=== PATIENT | male | born 1975 | race Caucasian/White ===

== ENCOUNTER 2021-12-10 13:41 | Inpatient (IN) | payer OTHER ==
[2021-12-10 15:14] VITALS: BMI 18.0
[2021-12-10] MEDS ORDERED: ACETAMINOPHEN 325 MG TABLET (FP) PO PRN ×2 (15:53)
[2021-12-10] MEDS ORDERED: MAGNESIUM HYDROX 2400MG/30ML ORAL SUSPENSION 30 ML CUP PO PRN (15:53)
[2021-12-10] MEDS ORDERED: IBUPROFEN 400 MG TABLET (FP) PO PRN (15:53)
[2021-12-10] MEDS ORDERED: methaDONE HCL 10 MG TABLET (FOR DETOX USE ONLY) PO ONE ×2 (15:53→20:15)
[2021-12-10] MEDS ORDERED: METHOCARBAMOL 500 MG TABLET PO PRN (15:53)
[2021-12-10] MEDS ORDERED: MAGNESIUM CITRATE 300 ML BOTTLE PO PRN (15:53)
[2021-12-10] MEDS ORDERED: MENTHOL/PHENOL 1 EACH UD MM PRN (15:53)
[2021-12-10] MEDS ORDERED: BISMUTH SUBSALICYLATE 524 MG/30 ML PO PRN (15:53)
[2021-12-10] MEDS ORDERED: cloNIDine HCL 0.1 MG TABLET PO PRN (15:53)
[2021-12-10] MEDS ORDERED: NICOTINE 10 MG CARTRIDGE (INHALER) IH PRN (15:53)
[2021-12-10] MEDS ORDERED: LOPERAMIDE HCL 2 MG CAPSULE PO PRN (15:53)
[2021-12-10] MEDS ORDERED: ONDANSETRON *ODT* 4 MG TABLET SL PRN (15:53)
[2021-12-10] MEDS ORDERED: MAG HYDROX/AL HYDROX/SIMETH 30 ML UNIT-DOSE CUP PO PRN (15:53)
[2021-12-10] MEDS: hydrOXYzine PAMOATE 25 MG CAPSULE (FP) PO SCH ×2 (20:20→22:35)
[2021-12-10] MEDS: THIAMINE HCL 100 MG TABLET (FP) PO SCH (22:35)
[2021-12-10] MEDS: diazePAM 5 MG TABLET PO SCH (22:35)
[2021-12-10] MEDS: MELATONIN 5 MG TABLETS PO SCH (22:35)
[2021-12-11] MEDS: hydrOXYzine PAMOATE 25 MG CAPSULE (FP) PO SCH ×5 (05:41→22:35)
[2021-12-11] MEDS: diazePAM 5 MG TABLET PO SCH (05:41)
[2021-12-11] MEDS ORDERED: methaDONE HCL 10 MG TABLET (FOR DETOX USE ONLY) ONE (09:32)
[2021-12-11] MEDS: PRENATAL VITAMINS W/ FOLIC ACID TABLET (FP) PO SCH (10:30)
[2021-12-11 11:26] LABS: HEMATOCRIT 39.3 % (35.4-49); HEMOGLOBIN 12.5 GM/dL (11.7-16.9); MCH 28.1 pg (25.7-33.7); MCHC 31.9 g/dl (32.0-35.9); MEAN PLT VOLUME 8.7 fl (7.5-11.1); PLATELET COUNT 243 10^3/uL (134-434); RBC 4.47 M/mm3 (4.00-5.60); RDW 16.6 % (11.9-15.9)
[2021-12-11 11:40] LABS: ALBUMIN 3.5 g/dl (3.4-5.0); CALCIUM 9.5 mg/dL (8.5-10.1)
[2021-12-11 11:41] LABS: BLOOD UREA NITROGEN 23.2 mg/dL (7-18)
[2021-12-11 11:44] LABS: CREATININE 0.7 mg/dL (0.55-1.3)
[2021-12-11 11:45] LABS: BILIRUBIN,TOTAL 0.6 mg/dL (0.2-1); TOT PROT 6.4 g/dl (6.4-8.2)
[2021-12-11] MEDS: BICTEGRAV/EMTRICIT/TENOFOV (BIKTARVY) 50-200-25 MG TABLET PO SCH (15:49)
[2021-12-11] MEDS: MELATONIN 5 MG TABLETS PO SCH (22:35)
[2021-12-11] MEDS: THIAMINE HCL 100 MG TABLET (FP) PO SCH (22:35)
[2021-12-11] MEDS: diazePAM 5 MG TABLET PO PRN (22:37)
[2021-12-12] MEDS ORDERED: diazePAM 5 MG TABLET PO SCH (06:00)
[2021-12-12] MEDS: diazePAM 5 MG TABLET PO PRN ×2 (06:54→20:50)
[2021-12-12] MEDS: hydrOXYzine PAMOATE 25 MG CAPSULE (FP) PO SCH ×5 (06:55→22:32)
[2021-12-12] MEDS: BICTEGRAV/EMTRICIT/TENOFOV (BIKTARVY) 50-200-25 MG TABLET PO SCH (07:52)
[2021-12-12] MEDS ORDERED: methaDONE HCL 10 MG TABLET (FOR DETOX USE ONLY) PO ONE (10:00)
[2021-12-12] MEDS: PRENATAL VITAMINS W/ FOLIC ACID TABLET (FP) PO SCH (10:17)
[2021-12-12] MEDS: diazePAM 5 MG TABLET PO SCH ×3 (10:19→22:32)
[2021-12-12 14:07] LABS: SARS-CoV-2 NAA Not Detected (Not Detected)
[2021-12-12] MEDS: THIAMINE HCL 100 MG TABLET (FP) PO SCH (22:32)
[2021-12-12] MEDS: MELATONIN 5 MG TABLETS PO SCH (22:32)
[2021-12-13] MEDS: hydrOXYzine PAMOATE 25 MG CAPSULE (FP) PO SCH ×5 (05:53→22:20)
[2021-12-13] MEDS: diazePAM 5 MG TABLET PO SCH ×3 (05:54→22:20)
[2021-12-13] MEDS ORDERED: diazePAM 5 MG TABLET PO SCH ×2 (06:00)
[2021-12-13] MEDS: BICTEGRAV/EMTRICIT/TENOFOV (BIKTARVY) 50-200-25 MG TABLET PO SCH (07:54)
[2021-12-13] MEDS ORDERED: methaDONE HCL 10 MG TABLET (FOR DETOX USE ONLY) ONE (11:24)
[2021-12-13] MEDS: PRENATAL VITAMINS W/ FOLIC ACID TABLET (FP) PO SCH (11:27)
[2021-12-13] MEDS: diazePAM 5 MG TABLET PO PRN (18:38)
[2021-12-13] MEDS: THIAMINE HCL 100 MG TABLET (FP) PO SCH (22:20)
[2021-12-13] MEDS: MELATONIN 5 MG TABLETS PO SCH (22:20)
[2021-12-14] MEDS ORDERED: diazePAM 5 MG TABLET PO ONE (06:00)
[2021-12-14] MEDS ORDERED: diazePAM 5 MG TABLET PO SCH (06:00)
[2021-12-14] MEDS: BICTEGRAV/EMTRICIT/TENOFOV (BIKTARVY) 50-200-25 MG TABLET PO SCH (07:06)
[2021-12-14] MEDS: hydrOXYzine PAMOATE 25 MG CAPSULE (FP) PO SCH ×3 (07:07→14:26)
[2021-12-14] MEDS: diazePAM 5 MG TABLET PO SCH ×2 (07:07→17:41)
[2021-12-14] MEDS ORDERED: methaDONE HCL 10 MG TABLET (FOR DETOX USE ONLY) PO ONE (10:00)
[2021-12-14] MEDS: PRENATAL VITAMINS W/ FOLIC ACID TABLET (FP) PO SCH (10:53)
[2021-12-14 17:42] VITALS: BP 106/65; PULSE 84; TEMP 98
[2021-12-15] MEDS ORDERED: diazePAM 5 MG TABLET PO ONE (06:00)
== END 2021-12-14 18:25 | disposition home or self-care (01) | DRG 897 ==
LOC: YASAS 13:41 → Y3N 19:31
PROVIDERS: ADMIT Allergy & Immunology; ATTEND Allergy & Immunology
PROC: HZ2ZZZZ Detoxification Services for Substance Abuse Treatment (ICD-10-PCS; principal; 2021-12-10)
DX: F11.23 Opioid dependence with withdrawal (principal); F14.20 Cocaine dependence, uncomplicated; F17.210 Nicotine dependence, cigarettes, uncomplicated; F19.24 Other psychoactive substance dependence with psychoactive substance-induced mood disorder; F41.9 Anxiety disorder, unspecified; Z21 Asymptomatic human immunodeficiency virus [HIV] infection status; J44.9 Chronic obstructive pulmonary disease, unspecified; B18.2 Chronic viral hepatitis C; Z56.0 Unemployment, unspecified; Z59.00 Homelessness unspecified
CPT/HCPCS: 36415; 80053; 85027; 86780; 87811; C9803; U0003; U0005

== ENCOUNTER 2022-02-15 13:45 | Inpatient (IN) | payer OTHER ==
[2022-02-15] MEDS ORDERED: BISMUTH SUBSALICYLATE 524 MG/30 ML PO PRN (15:24)
[2022-02-15] MEDS ORDERED: METHOCARBAMOL 500 MG TABLET PO PRN (15:24)
[2022-02-15] MEDS ORDERED: ONDANSETRON *ODT* 4 MG TABLET SL PRN (15:24)
[2022-02-15] MEDS ORDERED: ACETAMINOPHEN 325 MG TABLET (FP) PO PRN ×2 (15:24)
[2022-02-15] MEDS ORDERED: MAGNESIUM HYDROX 2400MG/30ML ORAL SUSPENSION 30 ML CUP PO PRN (15:24)
[2022-02-15] MEDS ORDERED: DICYCLOMINE HCL 10 MG CAPSULE PO PRN (15:24)
[2022-02-15] MEDS ORDERED: NICOTINE 10 MG CARTRIDGE (INHALER) IH PRN (15:24)
[2022-02-15] MEDS ORDERED: MAG HYDROX/AL HYDROX/SIMETH 30 ML UNIT-DOSE CUP PO PRN (15:24)
[2022-02-15] MEDS ORDERED: IBUPROFEN 400 MG TABLET (FP) PO PRN (15:24)
[2022-02-15] MEDS ORDERED: BENZOCAINE/MENTHOL (CHLORASEPTIC ) LOZENGE MM PRN (15:24)
[2022-02-15] MEDS ORDERED: MAGNESIUM CITRATE 300 ML BOTTLE PO PRN (15:24)
[2022-02-15] MEDS ORDERED: LOPERAMIDE HCL 2 MG CAPSULE PO PRN (15:24)
[2022-02-15 17:21] VITALS: BMI 19.8
[2022-02-15] MEDS ORDERED: hydrOXYzine PAMOATE 25 MG CAPSULE (FP) PO ONE (18:35)
[2022-02-15] MEDS ORDERED: diazePAM 5 MG TABLET ONE (18:35)
[2022-02-15] MEDS: hydrOXYzine PAMOATE 25 MG CAPSULE (FP) PO SCH (18:39)
[2022-02-15] MEDS: diazePAM 5 MG TABLET PO SCH (18:39)
[2022-02-16] MEDS: NICOTINE 21 MG/24 HOURS TOPICAL PATCH TD SCH ×2 (06:10→15:26)
[2022-02-16] MEDS: MELATONIN 5 MG TABLETS PO SCH ×2 (06:10→22:46)
[2022-02-16] MEDS: diazePAM 5 MG TABLET PO SCH ×5 (06:11→22:47)
[2022-02-16] MEDS: PRENATAL VITAMINS W/ FOLIC ACID TABLET (FP) PO SCH ×2 (06:11→15:26)
[2022-02-16] MEDS: hydrOXYzine PAMOATE 25 MG CAPSULE (FP) PO SCH ×6 (06:12→22:46)
[2022-02-16] MEDS: THIAMINE HCL 100 MG TABLET (FP) PO SCH ×2 (06:13→22:46)
[2022-02-16] MEDS ORDERED: diazePAM 5 MG TABLET ONE (06:16)
[2022-02-16 10:00] LABS: ALBUMIN 3.7 g/dl (3.4-5.0); BLOOD UREA NITROGEN 15.6 mg/dL (7-18); HEMATOCRIT 39.3 % (35.4-49); HEMOGLOBIN 12.8 GM/dL (11.7-16.9); MCH 28.8 pg (25.7-33.7); MCHC 32.6 g/dl (32.0-35.9); MEAN CELL VOLUME 88.4 fl (80-96); MEAN PLT VOLUME 8.3 fl (7.5-11.1); PLATELET COUNT 259 10^3/uL (134-434); RBC 4.44 M/mm3 (4.00-5.60); RDW 16.1 % (11.9-15.9); WHITE BLOOD COUNT 5.2 K/mm3 (4.0-10.0)
[2022-02-16 10:03] LABS: CREATININE 0.8 mg/dL (0.55-1.3)
[2022-02-16 10:05] LABS: BILIRUBIN,TOTAL 0.3 mg/dL (0.2-1); TOT PROT 6.2 g/dl (6.4-8.2)
[2022-02-16] MEDS ORDERED: methaDONE HCL 40 MG DISPERSABLE TABLET PO SCH (13:30)
[2022-02-16] MEDS ORDERED: methaDONE HCL 10 MG TABLET ONE (15:23)
[2022-02-16] MEDS ORDERED: methaDONE HCL 40 MG DISPERSABLE TABLET ONE (15:23)
[2022-02-16] MEDS: diazePAM 5 MG TABLET PO PRN (15:25)
[2022-02-16] MEDS: SULFAMETHOXAZOLE/TRIMETHOPRIM 800MG/160MG D.S. TABLET PO SCH (15:26)
[2022-02-16] MEDS: methaDONE 40 MG, methaDONE 30 MG PO SCH (15:26)
[2022-02-17] MEDS: hydrOXYzine PAMOATE 25 MG CAPSULE (FP) PO SCH ×5 (07:04→22:26)
[2022-02-17] MEDS: diazePAM 5 MG TABLET PO SCH ×3 (07:04→22:26)
[2022-02-17] MEDS: BICTEGRAV/EMTRICIT/TENOFOV (BIKTARVY) 50-200-25 MG TABLET PO SCH (08:36)
[2022-02-17] MEDS ORDERED: methaDONE HCL 10 MG TABLET ONE (09:27)
[2022-02-17] MEDS ORDERED: methaDONE HCL 40 MG DISPERSABLE TABLET ONE (09:27)
[2022-02-17] MEDS: PRENATAL VITAMINS W/ FOLIC ACID TABLET (FP) PO SCH (10:28)
[2022-02-17] MEDS: SULFAMETHOXAZOLE/TRIMETHOPRIM 800MG/160MG D.S. TABLET PO SCH (10:29)
[2022-02-17] MEDS: methaDONE 40 MG, methaDONE 30 MG PO SCH (10:29)
[2022-02-17] MEDS: NICOTINE 21 MG/24 HOURS TOPICAL PATCH TD SCH (11:09)
[2022-02-17] MEDS: diazePAM 5 MG TABLET PO PRN (18:32)
[2022-02-17] MEDS: MELATONIN 5 MG TABLETS PO SCH (22:26)
[2022-02-17] MEDS: THIAMINE HCL 100 MG TABLET (FP) PO SCH (22:26)
[2022-02-18] MEDS: hydrOXYzine PAMOATE 25 MG CAPSULE (FP) PO SCH ×5 (05:11→22:43)
[2022-02-18] MEDS: diazePAM 5 MG TABLET PO SCH ×2 (05:11→18:16)
[2022-02-18] MEDS: BICTEGRAV/EMTRICIT/TENOFOV (BIKTARVY) 50-200-25 MG TABLET PO SCH (07:30)
[2022-02-18] MEDS ORDERED: methaDONE HCL 40 MG DISPERSABLE TABLET ONE (08:38)
[2022-02-18] MEDS ORDERED: methaDONE HCL 10 MG TABLET ONE (08:38)
[2022-02-18] MEDS: methaDONE 40 MG, methaDONE 30 MG PO SCH (10:20)
[2022-02-18] MEDS: SULFAMETHOXAZOLE/TRIMETHOPRIM 800MG/160MG D.S. TABLET PO SCH (10:21)
[2022-02-18] MEDS: PRENATAL VITAMINS W/ FOLIC ACID TABLET (FP) PO SCH (10:21)
[2022-02-18] MEDS: NICOTINE 21 MG/24 HOURS TOPICAL PATCH TD SCH (10:23)
[2022-02-18] MEDS: THIAMINE HCL 100 MG TABLET (FP) PO SCH (22:43)
[2022-02-18] MEDS: MELATONIN 5 MG TABLETS PO SCH (22:43)
[2022-02-19] MEDS: hydrOXYzine PAMOATE 25 MG CAPSULE (FP) PO SCH ×5 (05:43→23:05)
[2022-02-19] MEDS ORDERED: diazePAM 5 MG TABLET PO ONE (06:00)
[2022-02-19] MEDS ORDERED: methaDONE HCL 40 MG DISPERSABLE TABLET ONE (09:37)
[2022-02-19] MEDS ORDERED: methaDONE HCL 10 MG TABLET ONE (09:37)
[2022-02-19] MEDS: methaDONE 40 MG, methaDONE 30 MG PO SCH (10:09)
[2022-02-19] MEDS: PRENATAL VITAMINS W/ FOLIC ACID TABLET (FP) PO SCH (10:09)
[2022-02-19] MEDS: BICTEGRAV/EMTRICIT/TENOFOV (BIKTARVY) 50-200-25 MG TABLET PO SCH (10:09)
[2022-02-19] MEDS: NICOTINE 21 MG/24 HOURS TOPICAL PATCH TD SCH (10:10)
[2022-02-19] MEDS: SULFAMETHOXAZOLE/TRIMETHOPRIM 800MG/160MG D.S. TABLET PO SCH (10:11)
[2022-02-19 21:30] VITALS: BP 122/71; PULSE 61; TEMP 97.5
[2022-02-19] MEDS: MELATONIN 5 MG TABLETS PO SCH (23:05)
[2022-02-19] MEDS: THIAMINE HCL 100 MG TABLET (FP) PO SCH (23:05)
== END 2022-02-19 23:55 | disposition home or self-care (01) | DRG 897 ==
LOC: YASAS 13:45 → Y3N 02-16 13:12 → UNDODISIN 02-19 23:52 → Y3N 02-20 00:06 → Y3W 02-20 00:06
PROVIDERS: ADMIT Allergy & Immunology; ATTEND Surgery
PROC: HZ2ZZZZ Detoxification Services for Substance Abuse Treatment (ICD-10-PCS; principal; 2022-02-16)
DX: F10.230 Alcohol dependence with withdrawal, uncomplicated (principal); F11.20 Opioid dependence, uncomplicated; F13.20 Sedative, hypnotic or anxiolytic dependence, uncomplicated; F14.20 Cocaine dependence, uncomplicated; F15.20 Other stimulant dependence, uncomplicated; F17.210 Nicotine dependence, cigarettes, uncomplicated; F19.24 Other psychoactive substance dependence with psychoactive substance-induced mood disorder; F41.9 Anxiety disorder, unspecified; F32.A Depression, unspecified; Z21 Asymptomatic human immunodeficiency virus [HIV] infection status; Z98.890 Other specified postprocedural states; Z28.310 Unvaccinated for COVID-19; Z59.00 Homelessness unspecified
CPT/HCPCS: 36415; 80053; 85027; 86780; C9803-CS; U0003; U0005

== ENCOUNTER 2022-02-20 01:12 | Inpatient (IN) | payer OTHER ==
[2022-02-20] MEDS ORDERED: MAGNESIUM CITRATE 300 ML BOTTLE PO PRN (01:14)
[2022-02-20] MEDS ORDERED: IBUPROFEN 400 MG TABLET (FP) PO PRN (01:14)
[2022-02-20] MEDS ORDERED: MAGNESIUM HYDROX 2400MG/30ML ORAL SUSPENSION 30 ML CUP PO PRN (01:14)
[2022-02-20] MEDS ORDERED: guaiFENesin 200 MG/10 ML 10 ML UNIT-DOSE CUPS PO PRN (01:14)
[2022-02-20] MEDS ORDERED: hydrOXYzine PAMOATE 25 MG CAPSULE (FP) PO PRN (01:14)
[2022-02-20] MEDS ORDERED: MAG HYDROX/AL HYDROX/SIMETH 30 ML UNIT-DOSE CUP PO PRN (01:14)
[2022-02-20] MEDS ORDERED: BENZOCAINE/MENTHOL (CHLORASEPTIC ) LOZENGE MM PRN (01:14)
[2022-02-20] MEDS ORDERED: ACETAMINOPHEN 325 MG TABLET (FP) PO PRN (01:14)
[2022-02-20] MEDS ORDERED: P-EPHED 60MG/TRIPROLIDI 2.5MG TABLET PO PRN (01:14)
[2022-02-20] MEDS ORDERED: LOPERAMIDE HCL 2 MG CAPSULE PO PRN (01:14)
[2022-02-20] MEDS ORDERED: NICOTINE POLACRILEX 2 MG GUM BUC PRN (01:14)
[2022-02-20] MEDS ORDERED: methaDONE 40 MG, methaDONE 30 MG PO ONE (09:30)
[2022-02-20] MEDS ORDERED: methaDONE HCL 40 MG DISPERSABLE TABLET ONE (09:34)
[2022-02-20] MEDS ORDERED: methaDONE HCL 10 MG TABLET ONE (09:34)
[2022-02-20] MEDS: BICTEGRAV/EMTRICIT/TENOFOV (BIKTARVY) 50-200-25 MG TABLET PO SCH (09:35)
[2022-02-20] MEDS: SULFAMETHOXAZOLE/TRIMETHOPRIM 800MG/160MG D.S. TABLET PO SCH (09:35)
[2022-02-20] MEDS: PRENATAL VITAMINS W/ FOLIC ACID TABLET (FP) PO SCH (09:42)
[2022-02-20] MEDS: NICOTINE 21 MG/24 HOURS TOPICAL PATCH TD SCH (09:42)
[2022-02-20] MEDS ORDERED: methaDONE HCL 40 MG DISPERSABLE TABLET PO SCH (10:00)
[2022-02-20] MEDS ORDERED: NICOTINE 14 MG/24 HOURS TOPICAL PATCH TD SCH (10:00)
[2022-02-20] MEDS: THIAMINE HCL 100 MG TABLET (FP) PO SCH (23:20)
[2022-02-20] MEDS: MELATONIN 5 MG TABLETS PO SCH (23:20)
[2022-02-21] MEDS ORDERED: methaDONE HCL 40 MG DISPERSABLE TABLET ONE (05:33)
[2022-02-21] MEDS ORDERED: methaDONE HCL 10 MG TABLET ONE (05:33)
[2022-02-21] MEDS: methaDONE 40 MG, methaDONE 30 MG PO SCH (06:10)
[2022-02-21] MEDS: SULFAMETHOXAZOLE/TRIMETHOPRIM 800MG/160MG D.S. TABLET PO SCH (09:56)
[2022-02-21] MEDS: BICTEGRAV/EMTRICIT/TENOFOV (BIKTARVY) 50-200-25 MG TABLET PO SCH (09:56)
[2022-02-21] MEDS: NICOTINE 21 MG/24 HOURS TOPICAL PATCH TD SCH (09:56)
[2022-02-21] MEDS: PRENATAL VITAMINS W/ FOLIC ACID TABLET (FP) PO SCH (09:56)
[2022-02-21] MEDS: METHOCARBAMOL 500 MG TABLET PO SCH ×4 (09:56→23:35)
[2022-02-21] MEDS: MELATONIN 5 MG TABLETS PO SCH (23:34)
[2022-02-21] MEDS: THIAMINE HCL 100 MG TABLET (FP) PO SCH (23:35)
[2022-02-22] MEDS ORDERED: methaDONE HCL 10 MG TABLET ONE (03:48)
[2022-02-22] MEDS ORDERED: methaDONE HCL 40 MG DISPERSABLE TABLET ONE (03:48)
[2022-02-22] MEDS: methaDONE 40 MG, methaDONE 30 MG PO SCH (06:03)
[2022-02-22] MEDS: PRENATAL VITAMINS W/ FOLIC ACID TABLET (FP) PO SCH (10:11)
[2022-02-22] MEDS: BICTEGRAV/EMTRICIT/TENOFOV (BIKTARVY) 50-200-25 MG TABLET PO SCH (10:11)
[2022-02-22] MEDS: SULFAMETHOXAZOLE/TRIMETHOPRIM 800MG/160MG D.S. TABLET PO SCH (10:11)
[2022-02-22] MEDS: METHOCARBAMOL 500 MG TABLET PO SCH ×4 (10:12→22:03)
[2022-02-22] MEDS: NICOTINE 21 MG/24 HOURS TOPICAL PATCH TD SCH (10:12)
[2022-02-22 16:10] LABS: SARS-CoV-2 NAA Not Detected (Not Detected)
[2022-02-22] MEDS: THIAMINE HCL 100 MG TABLET (FP) PO SCH (22:03)
[2022-02-22] MEDS: MELATONIN 5 MG TABLETS PO SCH (22:03)
[2022-02-23] MEDS ORDERED: methaDONE HCL 40 MG DISPERSABLE TABLET ONE (02:52)
[2022-02-23] MEDS ORDERED: methaDONE HCL 10 MG TABLET ONE (02:52)
[2022-02-23] MEDS: methaDONE 40 MG, methaDONE 30 MG PO SCH (06:23)
[2022-02-23] MEDS: SULFAMETHOXAZOLE/TRIMETHOPRIM 800MG/160MG D.S. TABLET PO SCH (10:12)
[2022-02-23] MEDS: BICTEGRAV/EMTRICIT/TENOFOV (BIKTARVY) 50-200-25 MG TABLET PO SCH (10:12)
[2022-02-23] MEDS: NICOTINE 21 MG/24 HOURS TOPICAL PATCH TD SCH (10:12)
[2022-02-23] MEDS: METHOCARBAMOL 500 MG TABLET PO SCH ×4 (10:12→22:38)
[2022-02-23] MEDS: PRENATAL VITAMINS W/ FOLIC ACID TABLET (FP) PO SCH (10:12)
[2022-02-23] MEDS: THIAMINE HCL 100 MG TABLET (FP) PO SCH (22:38)
[2022-02-23] MEDS: MELATONIN 5 MG TABLETS PO SCH (22:38)
[2022-02-24] MEDS ORDERED: methaDONE HCL 10 MG TABLET ONE (03:00)
[2022-02-24] MEDS ORDERED: methaDONE HCL 40 MG DISPERSABLE TABLET ONE (03:00)
[2022-02-24] MEDS: methaDONE 40 MG, methaDONE 30 MG PO SCH (06:04)
[2022-02-24] MEDS: PRENATAL VITAMINS W/ FOLIC ACID TABLET (FP) PO SCH (10:51)
[2022-02-24] MEDS: SULFAMETHOXAZOLE/TRIMETHOPRIM 800MG/160MG D.S. TABLET PO SCH (10:51)
[2022-02-24] MEDS: METHOCARBAMOL 500 MG TABLET PO SCH ×4 (10:51→22:41)
[2022-02-24] MEDS: BICTEGRAV/EMTRICIT/TENOFOV (BIKTARVY) 50-200-25 MG TABLET PO SCH (10:51)
[2022-02-24] MEDS: NICOTINE 21 MG/24 HOURS TOPICAL PATCH TD SCH (10:52)
[2022-02-24] MEDS: MELATONIN 5 MG TABLETS PO SCH (22:41)
[2022-02-24] MEDS: THIAMINE HCL 100 MG TABLET (FP) PO SCH (22:41)
[2022-02-25] MEDS ORDERED: methaDONE HCL 10 MG TABLET ONE (05:58)
[2022-02-25] MEDS ORDERED: methaDONE HCL 40 MG DISPERSABLE TABLET ONE (05:59)
[2022-02-25] MEDS: methaDONE 40 MG, methaDONE 30 MG PO SCH (05:59)
[2022-02-25] MEDS: SULFAMETHOXAZOLE/TRIMETHOPRIM 800MG/160MG D.S. TABLET PO SCH (09:55)
[2022-02-25] MEDS: METHOCARBAMOL 500 MG TABLET PO SCH ×4 (09:55→22:01)
[2022-02-25] MEDS: NICOTINE 21 MG/24 HOURS TOPICAL PATCH TD SCH (09:56)
[2022-02-25] MEDS: BICTEGRAV/EMTRICIT/TENOFOV (BIKTARVY) 50-200-25 MG TABLET PO SCH (09:56)
[2022-02-25] MEDS: PRENATAL VITAMINS W/ FOLIC ACID TABLET (FP) PO SCH (09:56)
[2022-02-25] MEDS: MELATONIN 5 MG TABLETS PO SCH (22:01)
[2022-02-25] MEDS: THIAMINE HCL 100 MG TABLET (FP) PO SCH (22:01)
[2022-02-26] MEDS ORDERED: methaDONE HCL 40 MG DISPERSABLE TABLET ONE (05:48)
[2022-02-26] MEDS ORDERED: methaDONE HCL 10 MG TABLET ONE (05:48)
[2022-02-26] MEDS: methaDONE 40 MG, methaDONE 30 MG PO SCH (06:19)
[2022-02-26 07:12] VITALS: TEMP 97
[2022-02-26] MEDS: PRENATAL VITAMINS W/ FOLIC ACID TABLET (FP) PO SCH (09:54)
[2022-02-26] MEDS: NICOTINE 21 MG/24 HOURS TOPICAL PATCH TD SCH (09:54)
[2022-02-26] MEDS: BICTEGRAV/EMTRICIT/TENOFOV (BIKTARVY) 50-200-25 MG TABLET PO SCH (09:54)
[2022-02-26] MEDS: SULFAMETHOXAZOLE/TRIMETHOPRIM 800MG/160MG D.S. TABLET PO SCH (09:54)
[2022-02-26] MEDS: METHOCARBAMOL 500 MG TABLET PO SCH (09:54)
[2022-02-26 11:38] VITALS: BP 143/84; PULSE 96
== END 2022-02-26 11:50 | disposition short-term general hospital (02) | DRG 895 ==
LOC: Y3W 01:12
PROVIDERS: ADMIT Allergy & Immunology; ATTEND Psychiatry & Neurology Pain Medicine
PROC: HZ42ZZZ Group Counseling for Substance Abuse Treatment, Cognitive-Behavioral (ICD-10-PCS; principal; 2022-02-20)
DX: F11.20 Opioid dependence, uncomplicated (principal); F14.20 Cocaine dependence, uncomplicated; F10.20 Alcohol dependence, uncomplicated; F17.210 Nicotine dependence, cigarettes, uncomplicated; Z21 Asymptomatic human immunodeficiency virus [HIV] infection status; Z86.59 Personal history of other mental and behavioral disorders; Z98.890 Other specified postprocedural states
CPT/HCPCS: C9803-CS; U0003; U0005

== ENCOUNTER 2023-02-16 16:14 | Inpatient (IN) | payer MEDICARE, OTHER ==
[2023-02-16 16:46] VITALS: BMI 18.2
[2023-02-16] MEDS ORDERED: NICOTINE POLACRILEX 2 MG GUM BUC PRN (18:40)
[2023-02-16] MEDS ORDERED: MAGNESIUM HYDROX 2400MG/30ML ORAL SUSPENSION 30 ML CUP PO PRN (18:40)
[2023-02-16] MEDS ORDERED: NALOXONE HCL 0.4 MG/ML VIAL IM PRN (18:40)
[2023-02-16] MEDS ORDERED: BENZOCAINE/MENTHOL (CHLORASEPTIC ) LOZENGE MM PRN (18:40)
[2023-02-16] MEDS ORDERED: METHOCARBAMOL 500 MG TABLET PO PRN (18:40)
[2023-02-16] MEDS ORDERED: MAG HYDROX/AL HYDROX/SIMETH 30 ML UNIT-DOSE CUP PO PRN (18:40)
[2023-02-16] MEDS ORDERED: IBUPROFEN 400 MG TABLET (FP) PO PRN (18:40)
[2023-02-16] MEDS ORDERED: BENZONATATE 200 MG CAPSULE PO PRN (18:40)
[2023-02-16] MEDS ORDERED: ACETAMINOPHEN 325 MG TABLET (FP) PO PRN (18:40)
[2023-02-16] MEDS ORDERED: guaiFENesin 600 MG TABLET.ER (FP) PO PRN (18:40)
[2023-02-16] MEDS ORDERED: NALOXONE HCL (KLOXXADO) 8 MG SPRAY NS PRN (18:40)
[2023-02-16] MEDS ORDERED: BISMUTH SUBSALICYLATE 524 MG/30 ML PO PRN (18:40)
[2023-02-16] MEDS ORDERED: IBUPROFEN 600 MG TABLET (FP) PO PRN (18:40)
[2023-02-16] MEDS ORDERED: ONDANSETRON *ODT* 4 MG TABLET SL PRN (18:40)
[2023-02-16] MEDS ORDERED: POLYETHYLENE GLYCOL (HEALTHYLAX) 3350 17 GM PACKET PO PRN (18:40)
[2023-02-16] MEDS ORDERED: DICYCLOMINE HCL 10 MG CAPSULE PO PRN (18:40)
[2023-02-16] MEDS ORDERED: diazePAM 5 MG TABLET PO PRN (19:43)
[2023-02-16] MEDS ORDERED: MELATONIN 5 MG TABLETS PO SCH (22:00)
[2023-02-16] MEDS: diazePAM 5 MG TABLET PO SCH (22:34)
[2023-02-16] MEDS: THIAMINE HCL 100 MG TABLET (FP) PO SCH (22:35)
[2023-02-17] MEDS: diazePAM 5 MG TABLET PO SCH ×4 (05:54→22:04)
[2023-02-17] MEDS: methaDONE 40 MG, methaDONE 10 MG PO SCH (05:55)
[2023-02-17] MEDS ORDERED: methaDONE HCL 10 MG TABLET PO SCH (06:00)
[2023-02-17 10:00] LABS: POTASSIUM 4.5 mmol/L (3.5-5.1)
[2023-02-17 10:03] LABS: CALCIUM 9.1 mg/dL (8.5-10.1)
[2023-02-17 10:04] LABS: ALBUMIN 3.3 g/dl (3.4-5.0); BLOOD UREA NITROGEN 18.3 mg/dL (7-18)
[2023-02-17 10:07] LABS: CREATININE 0.6 mg/dL (0.55-1.3)
[2023-02-17 10:08] LABS: BILIRUBIN,TOTAL 0.3 mg/dL (0.2-1); TOT PROT 6.3 g/dl (6.4-8.2)
[2023-02-17 10:12] LABS: HEMATOCRIT 37.4 % (35.4-49); HEMOGLOBIN 12.7 GM/dL (11.7-16.9); MCH 29.7 pg (25.7-33.7); MCHC 33.9 g/dl (32.0-35.9); MEAN CELL VOLUME 87.7 fl (80-96); PLATELET COUNT 244 10^3/uL (134-434); RBC 4.27 M/mm3 (4.00-5.60); RDW 16.5 % (11.9-15.9); WHITE BLOOD COUNT 5.9 K/mm3 (4.0-10.0)
[2023-02-17] MEDS: ABACAVIR/DOLUTEGRAVIR/LAMIVUDI (TRIUMEQ) TABLET PO SCH (10:20)
[2023-02-17] MEDS: PRENATAL VITAMINS W/ FOLIC ACID TABLET (FP) PO SCH (10:20)
[2023-02-17] MEDS: NICOTINE 7 MG/24 HOURS TOPICAL PATCH TD SCH (10:22)
[2023-02-17] MEDS: QUEtiapine FUMARATE 100 MG TABLET (FP) PO SCH (21:51)
[2023-02-17] MEDS: THIAMINE HCL 100 MG TABLET (FP) PO SCH (21:51)
[2023-02-18] MEDS: methaDONE 40 MG, methaDONE 10 MG PO SCH (05:53)
[2023-02-18] MEDS: diazePAM 5 MG TABLET PO SCH ×3 (05:53→22:13)
[2023-02-18] MEDS: ABACAVIR/DOLUTEGRAVIR/LAMIVUDI (TRIUMEQ) TABLET PO SCH (10:38)
[2023-02-18] MEDS: PRENATAL VITAMINS W/ FOLIC ACID TABLET (FP) PO SCH (10:38)
[2023-02-18] MEDS: LOPERAMIDE HCL 2 MG CAPSULE PO PRN ×2 (10:41→22:14)
[2023-02-18] MEDS: NICOTINE 7 MG/24 HOURS TOPICAL PATCH TD SCH (10:42)
[2023-02-18] MEDS: QUEtiapine FUMARATE 100 MG TABLET (FP) PO SCH (22:13)
[2023-02-18] MEDS: THIAMINE HCL 100 MG TABLET (FP) PO SCH (22:14)
[2023-02-19] MEDS: diazePAM 5 MG TABLET PO SCH ×2 (05:42→17:59)
[2023-02-19] MEDS: methaDONE 40 MG, methaDONE 10 MG PO SCH (05:42)
[2023-02-19] MEDS: ABACAVIR/DOLUTEGRAVIR/LAMIVUDI (TRIUMEQ) TABLET PO SCH (08:31)
[2023-02-19] MEDS: hydrOXYzine PAMOATE 25 MG CAPSULE (FP) PO PRN ×2 (10:05→19:02)
[2023-02-19] MEDS: NICOTINE 7 MG/24 HOURS TOPICAL PATCH TD SCH (10:25)
[2023-02-19] MEDS: PRENATAL VITAMINS W/ FOLIC ACID TABLET (FP) PO SCH (10:25)
[2023-02-19] MEDS: QUEtiapine FUMARATE 100 MG TABLET (FP) PO SCH (22:33)
[2023-02-19] MEDS: THIAMINE HCL 100 MG TABLET (FP) PO SCH (22:33)
[2023-02-20] MEDS: methaDONE 40 MG, methaDONE 10 MG PO SCH (05:55)
[2023-02-20] MEDS ORDERED: diazePAM 5 MG TABLET PO ONE (06:00)
[2023-02-20 06:31] VITALS: BP 110/59; PULSE 69; RESP 17; TEMP 97.5
[2023-02-20] MEDS: ABACAVIR/DOLUTEGRAVIR/LAMIVUDI (TRIUMEQ) TABLET PO SCH (07:10)
== END 2023-02-20 09:17 | disposition home or self-care (01) | DRG 897 ==
LOC: YASAS 16:14 → Y3N 18:53
PROVIDERS: ADMIT Allergy & Immunology; ATTEND Surgery
PROC: HZ2ZZZZ Detoxification Services for Substance Abuse Treatment (ICD-10-PCS; principal; 2023-02-16)
DX: F13.230 Sedative, hypnotic or anxiolytic dependence with withdrawal, uncomplicated (principal); F11.20 Opioid dependence, uncomplicated; B20 Human immunodeficiency virus [HIV] disease; F17.210 Nicotine dependence, cigarettes, uncomplicated; F39 Unspecified mood [affective] disorder; J41.0 Simple chronic bronchitis; Z86.19 Personal history of other infectious and parasitic diseases
CPT/HCPCS: 36415; 80053; 85027; 86780; 87811; C9803-CS; Q0162; U0003; U0005